=== PATIENT | male | born 1965 | race Caucasian/White ===

== ENCOUNTER → 2024-02-24 10:46 | Outpatient (REF) | payer BC, SELFPAY | LOC: HWRAD 10:46 | PROVIDERS: ATTENDING PHYSICIAN Nurse Practitioner | DX: R06.02 Shortness of breath (principal) | CPT/HCPCS: 71046 ==

== ENCOUNTER → 2024-03-10 06:59 | Outpatient (REF) | payer BC, SELFPAY | LOC: HWRCS 06:59 | PROVIDERS: ATTENDING PHYSICIAN Nurse Practitioner | DX: R06.02 Shortness of breath (principal) | CPT/HCPCS: 93306 ==

== ENCOUNTER 2025-07-26 06:23 | Day surgery (SDC) | payer BC, SELFPAY | END 2025-07-26 09:10 | disposition home or self-care (01) | LOC: GI 06:23 | PROVIDERS: ATTENDING PHYSICIAN Internal Medicine Gastroenterology | DX: Z12.11 Encounter for screening for malignant neoplasm of colon (principal); K57.30 Diverticulosis of large intestine without perforation or abscess without bleeding; K64.8 Other hemorrhoids; Z86.0100 Personal history of colon polyps, unspecified | CPT/HCPCS: G0105 ==